=== PATIENT | female | born 1960 | race Caucasian/White ===

== ENCOUNTER → 2018-08-16 | Outpatient (CLI) | payer BC ==
[~2018-08-16] MED LIST: ATOR20TA37 PO; CHOL10003 PO; CITA20TA6 PO; LISI-167 PO; PANT20TA3 PO
[2018-08-16 11:59] LABS: BASOPHILS # (AUTO) 0.06 x10^3/uL (0-0.1); BASOPHILS % (AUTO) 1 % (0-1); EOSINOPHILS # (AUTO) 0.24 x10^3/uL (0-0.4); EOSINOPHILS % (AUTO) 3 % (1-7); LYMPHOCYTES # (AUTO) 2.69 x10^3/uL (1-3.4); LYMPHOCYTES % (AUTO) 33 % (22-44); MD NO; MEAN CORPUSCULAR HEMOGLOBIN 29.6 pg (27.0-34.8); MEAN CORPUSCULAR HGB CONC 33.1 g/dL (32.4-35.8); MEAN CORPUSCULAR VOLUME 89.5 fL (80-100); MEAN PLATELET VOLUME 8.4 fL (7.4-10.4); MONOCYTES # (AUTO) 0.57 x10^3/uL (0.2-0.8); MONOCYTES % (AUTO) 7 % (2-9); NEUTROPHILS # (AUTO) 4.57 x10^3/uL (1.8-6.8); NEUTROPHILS % (AUTO) 56 % (42-75); PLATELET COUNT 326 x10^3/uL (130-400); RED BLOOD COUNT 5.14 x10^6/uL (3.82-5.3); RED CELL DISTRIBUTION WIDTH 14.1 % (9.6-15.2)
[2018-08-16 12:04] LABS: ALBUMIN 3.7 g/dL (3.4-5.0); ANION GAP 6 mmol/L (5-15); CALCIUM 9.8 mg/dL (8.5-10.1); CHLORIDE 108 mmol/L (98-107)
[2018-08-16 12:08] LABS: ALANINE AMINOTRANSFERASE 20 U/L (12-78); ALKALINE PHOSPHATASE 97 U/L (45-117); BILIRUBIN,TOTAL 0.4 mg/dL (0.2-1.0); CREATININE 0.82 mg/dL (0.55-1.02); TOTAL PROTEIN 7.5 g/dL (6.4-8.2)
== END | disposition home or self-care (01) ==
LOC: STAR 11:11
PROVIDERS: ATTEND Orthopaedic Surgery
DX: Z01.818 Encounter for other preprocedural examination (principal); M16.11 Unilateral primary osteoarthritis, right hip; I25.2 Old myocardial infarction
CPT/HCPCS: 36415; 80053; 85025; 87081; 93005

== ENCOUNTER 2018-08-26 09:42 | Inpatient (IN) | payer BC ==
[~2018-08-26] VITALS: Ht 162.6 cm; Wt 90.2 kg
[~2018-08-26 09:42] MED LIST changes: +EPINEPHRINE 1 MG/ML, 1ML ONE; +KETOROLAC 60 MG/2 ML ONE; +ROPIvacaine/PF 0.2%, 20 ML ONE; +SODIUM CHLORIDE 0.9% 50 ML ONE; +TRANEXAMIC ACID 100 MG/ML, 10ML ONE
[2018-08-26] MEDS ORDERED: DIAZEPAM 5 MG TABLET PO STA (10:07)
[2018-08-26] MEDS ORDERED: GABAPENTIN 300 MG CAPSULE PO STA (10:07)
[2018-08-26] MEDS ORDERED: ACETAMINOPHEN 500 MG TABLET PO STA (10:07)
[2018-08-26] MEDS ORDERED: SCOPOLAMINE PATCH, 1.5MG PATCH.TD72 TD STA (10:07)
[2018-08-26] MEDS ORDERED: LACTATED RINGERS 1,000 ML IV SCH (10:08)
[2018-08-26] MEDS ORDERED: LIDOCAINE-MPF 1%, 2ML INFIL ONE (10:30)
[2018-08-26] MEDS ORDERED: MIDAZOLAM 1 MG/ML, 2ML ONE (11:56)
[2018-08-26] MEDS ORDERED: FENTANYL PF 250 MCG/5ML ONE ×2 (11:56→13:27)
[2018-08-26] MEDS ORDERED: ROCURONIUM 10MG/ML,5ML ONE (13:29)
[2018-08-26] MEDS ORDERED: ONDANSETRON 2MG/ML, 2ML ONE (13:29)
[2018-08-26] MEDS ORDERED: SUCCINYLCHOLINE 20 MG/ML, 10ML ONE (13:29)
[2018-08-26] MEDS ORDERED: DEXAMETHASONE 4 MG/ML, 1ML ONE (13:29)
[2018-08-26] MEDS ORDERED: PROPOFOL 10 MG/ML, 20ML ONE (13:29)
[2018-08-26] MEDS ORDERED: CEFAZOLIN 1,000 MG ONE (13:29)
[2018-08-26] MEDS ORDERED: DIAZEPAM 5 MG/ML, 2ML IVPush PRN (13:30)
[2018-08-26] MEDS ORDERED: ONDANSETRON 2MG/ML, 2ML IV PRN (13:30)
[2018-08-26] MEDS ORDERED: MIDAZOLAM 1 MG/ML, 2ML IV PRN (13:30)
[2018-08-26] MEDS ORDERED: MEPERIDINE/PF 25MG/0.5ML IVPush PRN (13:30)
[2018-08-26] MEDS ORDERED: ALBUTEROL/IPRATROPIUM 2.5MG/0.5MG, 3 ML NPPB PRN (13:30)
[2018-08-26] MEDS ORDERED: OXYcodone 5 MG/5 ML ORAL.SOL UDC PO PRN (13:30)
[2018-08-26] MEDS ORDERED: METOPROLOL 1 MG/ML, 5ML IV PRN (13:30)
[2018-08-26] MEDS ORDERED: PROMETHAZINE 25 MG/ML, 1ML IV PRN (13:30)
[2018-08-26] MEDS ORDERED: HYDROmorphone 2 MG/ML, 1ML IVPush PRN ×2 (13:30→15:00)
[2018-08-26] MEDS ORDERED: hydrALAzine 20 MG/ML, 1ML IV PRN (13:30)
[2018-08-26] MEDS ORDERED: LIDOCAINE-MPF 2% ,5ML ONE (14:19)
[2018-08-26] MEDS ORDERED: FENTANYL PF 100 MCG/2ML ONE (14:54)
[2018-08-26] MEDS ORDERED: hydrALAzine 20 MG/ML, 1ML ONE (14:54)
[2018-08-26] MEDS ORDERED: OXYcodone 5 MG/5 ML ORAL.SOL UDC ONE (14:55)
[2018-08-26] MEDS ORDERED: ONDANSETRON 4 MG TABLET PO PRN (15:00)
[2018-08-26] MEDS ORDERED: ZOLPIDEM 5MG TABLET PO PRN (15:00)
[2018-08-26] MEDS ORDERED: OXYcodone IR 5MG TABLET PO PRN ×2 (15:00)
[2018-08-26] MEDS ORDERED: DIPHENHYDRAMINE 25 MG CAPSULE PO PRN (15:00)
[2018-08-26] MEDS ORDERED: PSYLLIUM PACKET PO PRN (15:00)
[2018-08-26] MEDS ORDERED: ONDANSETRON 2MG/ML, 2ML IVPush PRN (15:00)
[2018-08-26] MEDS ORDERED: DEXAMETHASONE 4 MG/ML, 1ML IVPush SCH (15:00)
[2018-08-26] MEDS ORDERED: MAGNESIUM HYDROXIDE 8%, 30ML UDC PO PRN (15:00)
[2018-08-26] MEDS ORDERED: SENNA/DOCUSATE TABLET PO PRN (15:00)
[2018-08-26] MEDS ORDERED: SCOPOLAMINE PATCH, 1.5MG PATCH.TD72 TD SCH (15:00)
[2018-08-26] MEDS ORDERED: DIAZEPAM 5 MG TABLET PO PRN (15:00)
[2018-08-26] MEDS ORDERED: ALUMINUM/MAG/SIMETHICONE 30 ML UDC PO PRN (15:00)
[2018-08-26] MEDS ORDERED: POLYETHYLENE GLYCOL 17 GM PACKET PO PRN (15:00)
[2018-08-26] MEDS ORDERED: PROMETHAZINE 12.5 MG SUPP PR PRN (15:00)
[2018-08-26] MEDS ORDERED: PROMETHAZINE 25 MG/ML, 1ML IM PRN (15:00)
[2018-08-26] MEDS ORDERED: KETOROLAC 30 MG/1 ML IV SCH (15:00)
[2018-08-26] MEDS: FENTANYL PF 100 MCG/2ML IV PRN ×2 (15:05→15:16)
[2018-08-26] MEDS ORDERED: TRANEXAMIC ACID 1,000 MG in SODIUM CHLORIDE 0.9% 100 ML IVPB ONE (15:10)
[2018-08-26] MEDS: D5%-0.45% NACL 1,000 ML IV SCH ×2 (16:35→22:48)
[2018-08-26] MEDS ORDERED: NICOTINE 21 MG/24 HR PATCH.TD24 ONE (18:03)
[2018-08-26] MEDS: CALCIUM/VITAMIN D3 250-125 TABLET PO SCH (18:06)
[2018-08-26] MEDS: KETOROLAC 30 MG/1 ML IV SCH (18:06)
[2018-08-26] MEDS: ACETAMINOPHEN 500 MG TABLET PO SCH ×2 (18:07→23:40)
[2018-08-26] MEDS: FERROUS SULFATE 325 MG TABLET PO SCH (18:07)
[2018-08-26] MEDS: NICOTINE 21 MG/24 HR PATCH.TD24 TD SCH (18:09)
[2018-08-26 19:23] VITALS: BP 105/72
[2018-08-26] MEDS ORDERED: ATORVASTATIN 20 MG TABLET PO SCH (21:00)
[2018-08-26] MEDS: DOCUSATE 100 MG CAPSULE PO SCH (21:38)
[2018-08-26] MEDS: CEFAZOLIN PMX 1GM/50ML 50 ML IVPB SCH (21:39)
[2018-08-26] MEDS: ASPIRIN 81 MG TABLET EC PO SCH (21:57)
[2018-08-27 00:25] VITALS: BP 110/75
[2018-08-27] MEDS: KETOROLAC 30 MG/1 ML IV SCH ×2 (01:59→10:30)
[2018-08-27 03:50] VITALS: BP 115/72
[2018-08-27] MEDS ORDERED: DEXAMETHASONE 10 MG in SODIUM CHLORIDE 0.9% 50 ML IV ONE (06:00)
[2018-08-27] MEDS: CEFAZOLIN PMX 1GM/50ML 50 ML IVPB SCH (06:17)
[2018-08-27] MEDS: ACETAMINOPHEN 500 MG TABLET PO SCH ×2 (06:17→11:00)
[2018-08-27] MEDS: D5%-0.45% NACL 1,000 ML IV SCH (06:48)
[2018-08-27 07:05] VITALS: BP 117/79
[2018-08-27] MEDS: DOCUSATE 100 MG CAPSULE PO SCH (07:58)
[2018-08-27] MEDS: ASPIRIN 81 MG TABLET EC PO SCH (07:58)
[2018-08-27] MEDS: CALCIUM/VITAMIN D3 250-125 TABLET PO SCH ×2 (07:58→12:00)
[2018-08-27] MEDS: FERROUS SULFATE 325 MG TABLET PO SCH (07:59)
[2018-08-27] MEDS: NICOTINE 21 MG/24 HR PATCH.TD24 TD SCH (08:00)
[2018-08-27] MEDS ORDERED: MULTIVITAMINS/MINERALS TABLET PO SCH (09:00)
[2018-08-27] MEDS ORDERED: ASCORBIC ACID 500 MG TABLET PO SCH (09:00)
[2018-08-27] MEDS ORDERED: CITALOPRAM 20 MG TABLET PO SCH (09:00)
[2018-08-27] MEDS ORDERED: PANTOPRAZOLE 20MG TABLET PO SCH (09:00)
[2018-08-27] MEDS ORDERED: LISINOPRIL 10 MG TABLET PO SCH (09:00)
[2018-08-27] MEDS ORDERED: NICOTINE 21 MG/24 HR PATCH.TD24 TD SCH (18:00)
== END 2018-08-27 12:50 | disposition home or self-care (01) | DRG 470 ==
LOC: ORIP 09:42 → 4NOR 15:50 → DCLOUNGE 08-27 12:44
PROVIDERS: ADMIT Orthopaedic Surgery; ATTEND Orthopaedic Surgery
PROC: 0SR906Z Replacement of Right Hip Joint with Oxidized Zirconium on Polyethylene Synthetic Substitute, Open Approach (ICD-10-PCS; principal; 2018-08-26 12:45)
DX: M16.11 Unilateral primary osteoarthritis, right hip (principal); K21.9 Gastro-esophageal reflux disease without esophagitis; I10 Essential (primary) hypertension; F17.210 Nicotine dependence, cigarettes, uncomplicated; E66.3 Overweight; E78.5 Hyperlipidemia, unspecified; E66.9 Obesity, unspecified; F32.9 Major depressive disorder, single episode, unspecified; Z82.3 Family history of stroke; Z68.34 Body mass index [BMI] 34.0-34.9, adult
CPT/HCPCS: 36415; 73501; J3490; 85014; 85018; 86850; 86900; C1713; G0378; J0171; J0690; J1100; J1885; J2250; J2405; J2704; J2795; J3010; C1776; J0330; J0360; J7120